=== PATIENT | female | born 1985 | race Caucasian/White ===

== ENCOUNTER 2018-01-26 20:58 | Inpatient (IN) | payer OTHER ==
[2018-01-27 04:52] LABS: Hematocrit 34.8 % (30.3-42.9); Hemoglobin 11.3 gm/dl (10.1-14.3); Mean Corpuscular HGB Conc 32 % (30-34); Mean Corpuscular Hemoglobin 28 pg (28-32); Mean Corpuscular Volume 87 fl (79-97); Platelet Count 294 K/mm3 (140-440); Red Cell Distribution Width 14.3 % (13.2-15.2)
[2018-01-27] MEDS ORDERED: LACTATED RINGERS 1,000 ML ONE (04:57)
[2018-01-27] MEDS: LACTATED RINGERS 1,000 ML IV SCH ×2 (05:09→08:19)
[2018-01-27] MEDS: PITOCin/NS 30 UNIT/500ML 30 UNITS/500 ML BAG IV SCH ×2 (08:18→09:03)
--- NOTE | 2018-01-27 10:06 | History and Physical Report ---
History of Present Illness Date of examination: 01/27/18 Date of admission: 01/26/18 20:58 Chief complaint: Presents for scheduled induction of labor for postdates and suspected small for gestational age History of present illness: Early entry to care at [facility], uncomplicated course. Past History Past Medical History: no pertinent history Past Surgical History: no surgical history Family/Genetic History: cancer (mother: gallbladder) Social history: no significant social history - Obstetrical History Expected Date of Delivery: 01/22/18 Actual Gestation: 40 Week(s) 5 Day(s) : 4 Para: 2 Hx # Term Pregnancies: 2 Spontaneous Abortions: 1 Number of Living Children: 2 #1 Infant Gender: Male year: ,[birth year] Birthweight: 2.722 kg Method of Delivery: Vaginal Gestational age at delivery: 40 Complications: none #2 Gender: Male year: ,009 Birthweight: 3.175 kg Method of Delivery: Vaginal Gestational age at delivery: 40 Complications: none Medications and Allergies Allergies Allergy/AdvReac Type Severity Reaction Status Date / Time No Known Allergies Allergy Unverified 01/26/18 22:14 Home Medications Medication Instructions Recorded Confirmed Last Taken Type No Known Home Medications [No 01/27/18 01/27/18 Unknown History Reported Home Medications] Active Meds: Active Medications Lactated Ringer's (Lactated Ringers) 1,000 mls @ 125 mls/hr IV DIRECT BRAD Last Admin: 01/27/18 08:19 Dose: 125 mls/hr Oxytocin/Sodium Chloride (Pitocin/Ns 30 Unit/500ml) 30 units in 500 mls @ 4 mls /hr IV TITR BRAD; Protocol Last Admin: 01/27/18 09:03 Dose: 8 ml/hr, 8 mls/hr Influenza Virus Vaccine Quadrival (Fluarix Quad [id number](36 Mos+) 0.5 ml IM .ONCE ONE Stop: 01/27/18 12:01 Review of Systems All systems: negative - Vital Signs Vital signs: Vital Signs Pulse Pulse Ox 76 99 01/26/18 21:56 01/26/18 21:56 Temp Pulse Resp BP Pulse Ox 97.6 F 68 14 103/57 98 01/27/18 07:31 01/27/18 08:09 01/27/18 07:31 01/27/18 07:35 01/27/18 08:09 - Physical Exam Breasts: Positive: normal Cardiovascular: Regular rate Lungs: Positive: Clear to auscultation, Normal air movement Abdomen: Positive: normal appearance, soft, normal bowel sounds Genitourinary (Female): Positive: normal external genitalia, normal perenium Uterus: Positive: enlarged Anus/Rectum: Positive: normal perianal skin - Obstetrical FHR: category 1 Uterine Contraction Monitor Mode: Internal Cervical Dilatation: 6.5 (Scant amount of clear fluid upon AROM at 0953) Cervical Effacement Percentage: 80 station: -2 Uterine Contraction Frequency (min): 2 Uterine Contraction Pattern: Regular Uterine Tone Measurement Phase: Resting Uterine Contraction Intensity: Strong/Firm Results Result Diagrams: 01/26/18 22:35 All other labs normal. Assessment and Plan A: IUP @ 40 5/7 Weeks Category I Tracing Active Labor GBS Negative P: Admit to L&D per routine orders AROM Internal x 1 Pitocin Augmentation
[2018-01-27] MEDS ORDERED: BRETHINE SUB-Q PRN (10:11)
[2018-01-27] MEDS ORDERED: ePHEDrine SULFATE IV PRN (10:11)
[2018-01-27] MEDS ORDERED: SUBLIMAZE IV PRN (10:11)
[2018-01-27] MEDS ORDERED: MINERAL OIL PO PRN (10:11)
[2018-01-27] MEDS ORDERED: XYLOCAINE 2% INFILTRATI ONE (10:11)
[2018-01-27] MEDS ORDERED: NARCAN 0.4 MG/1 ML IV PRN (10:11)
[2018-01-27] MEDS ORDERED: BRETHINE IVP PRN (10:11)
[2018-01-27] MEDS ORDERED: LACTATED RINGERS 1,000 ML IV SCH (11:00)
[2018-01-27] MEDS ORDERED: PITOCin/NS 20 UNIT/1000ML DRIP 20 UNITS/1,000 ML BAG IV SCH (11:00)
[2018-01-27] MEDS ORDERED: DULCOLAX PR PRN (11:19)
[2018-01-27] MEDS ORDERED: BENADRYL PO PRN (11:19)
[2018-01-27] MEDS ORDERED: MILK OF MAGNESIA PO PRN (11:19)
[2018-01-27] MEDS ORDERED: PHENERGAN PR PRN (11:19)
[2018-01-27] MEDS ORDERED: PERCOCET 5/325 PO PRN (11:19)
--- NOTE | 2018-01-27 11:26 | Procedure Note ---
OB Delivery Note - Delivery Date of Delivery: 01/27/18 (1104) Surgeon: JAMES BERMAN Estimated blood loss: 200cc - Vaginal Delivery presentation: vertex Delivery position: OA Intrapartum events: none Delivery induction: oxytocin Delivery augmentation: rupture of membranes, pitocin Delivery monitor: external FHT, internal uterine Route of delivery: Delivery placenta: spontaneous Delivery cord: 3 umbilical vessels Episiotomy: none Delivery laceration: none Anesthesia: none Delivery comments: of a live 6'2 female infant over a intact perineum without pain control with Apgars of 8 and 9 at 1104 on 01/27/2018. directly to maternal abd/ chest, skin to skin contact. Spontaneous delivery of placenta complete and intact with Mi side presenting at 1107. Fundus is firm and midline located 4 below the U. Lochia is scant. Delayed cord clamping and cutting; Cord cut by the father of the baby. Cord blood collected; Placenta discarded. - Infant A at 1 minute: 8 at 5 minutes: 9 Gender: Female (6'2)
[2018-01-27] MEDS ORDERED: Fluarix Quad 2017-2018(36 MOS+ IM ONE (12:00)
[2018-01-27] MEDS ORDERED: SODIUM CHLORIDE FLUSH SYRINGE 10 ML IV NR (12:00)
[2018-01-27] MEDS: MOTRIN PO SCH ×2 (18:15→23:45)
[2018-01-27 23:19] LABS: Hematocrit 32.3 % (30.3-42.9); Hemoglobin 10.7 gm/dl (10.1-14.3)
[2018-01-28] MEDS: MOTRIN PO SCH (05:57)
[2018-01-28] MEDS ORDERED: BOOSTRIX IM ONE (06:00)
--- NOTE | 2018-01-28 09:58 | Progress Note ---
Assessment and Plan A: PPD#1 s/p Stable P: Routine PP care Discharge home today Subjective - Subjective Date of service: 01/28/18 Patient reports: appetite normal, voiding normally, pain well controlled, flatus , ambulating normally : doing well, other (Breast/Bottle) Objective - Vital Signs Latest vital signs: Vital Signs Temp Pulse Resp BP BP Pulse Ox 01/28/18 08:05 98.2 F 66 20 85/46 96 01/28/18 00:00 98.2 F 68 18 92/48 01/27/18 20:05 99.4 F 89 18 86/51 01/27/18 17:45 96/48 01/27/18 16:56 98.8 F 87 18 81/37 96 01/27/18 12:39 84 105/61 01/27/18 12:23 86 108/60 01/27/18 12:08 81 96/52 01/27/18 11:54 87 103/50 01/27/18 11:38 84 109/56 01/27/18 11:26 86 110/56 Intake and Output 01/27/18 01/28/18 01/28/18 23:59 07:59 15:59 Intake Total 300 240 Output Total 400 Balance 300 -160 Intake: Oral 300 240 Output: Urine 400 Void 400 Other: Total, Intake Amount 300 240 Total, Output Amount 400 # Voids Void 3 1 - Exam Breasts: Present: normal, Cardiovascular: Present: Regular rate, Normal S1 Lungs: Present: Clear to auscultation, Normal air movement Abdomen: Present: normal appearance, soft, normal bowel sounds Vulva: both: normal Uterus: Present: firm, fundal height below umbilicus (-1) Extremities: Present: normal Deep Tendon Reflex Grade: Normal +2
--- NOTE | 2018-01-28 09:59 | Discharge Summary ---
Providers - Providers Date of Admission: 01/26/18 20:58 Date of discharge: 01/28/18 Attending physician: DAVID CONNELLY MD Primary care physician: DAVID CONNELLY MD Hospitalization Reason for admission: active labor Delivery: Procedure details: See H&P and delivery note Episiotomy: none Laceration: none Other procedures: none complications: none Discharge diagnosis: IUP at term delivered Waterproof baby: male Condition at discharge: Good Disposition: DC-01 TO HOME OR SELFCARE Plan - Provider Discharge Summary Activity: routine, no sex for 6 weeks, no heavy lifting 4 weeks, no strenuous exercise Diet: routine Instructions: routine Additional instructions: [] Smoking cessation referral if applicable(refer to patient education folder for contact #) [] Refer to [facility]'s [facility] Booklet Call your doctor immediately for: * Fever > 100.5 * Heavy vaginal bleeding ( >1 pad per hour) * Severe persistent headache * Shortness of breath * Reddened, hot, painful area to leg or breast * Drainage or odor from incision. * Keep incision clean and dry at all times and follow doctor's instructions regarding bathing/showering - Follow up plan Follow up: DAVID CONNELLY MD [Primary Care Provider] - 6 Weeks
[2018-01-29] MEDS: MOTRIN PO SCH ×3 (05:00→12:10)
[2018-01-29] MEDS ORDERED: Fluarix Quad 2017-2018(36 MOS+ IM ONE (12:00)
[2018-01-29 13:53] VITALS: BP 101/64
== END 2018-01-29 15:35 | disposition home or self-care (01) | DRG 775 ==
LOC: LD 20:58 → OB 01-27 13:11
PROVIDERS: ADMIT Obstetrics & Gynecology; ATTEND Obstetrics & Gynecology
PROC: 10E0XZZ Delivery of Products of Conception, External Approach (ICD-10-PCS; principal; 2018-01-27)
PROC: 3E033VJ Introduction of Other Hormone into Peripheral Vein, Percutaneous Approach (ICD-10-PCS; 2018-01-27)
PROC: 3E0234Z Introduction of Serum, Toxoid and Vaccine into Muscle, Percutaneous Approach (ICD-10-PCS; 2018-01-29)
DX: O48.0 Post-term pregnancy (principal); Z3A.40 40 weeks gestation of pregnancy; Z37.0 Single live birth; Z23 Encounter for immunization; Z80.0 Family history of malignant neoplasm of digestive organs
CPT/HCPCS: 36415; 85014; 85018; 85027; 86592; 86706; 86850; 86900; 86901; 90471; 90686; 99211; G0008; G0463; J2590; J7120

== ENCOUNTER 2018-11-28 10:20 | Inpatient (IN) | payer MEDICAID, OTHER ==
[2018-11-28] MEDS ORDERED: AMPICILLIN/NS 2 GM/100 ML 2 GM/100 ML BAG IV ONE (10:37)
[2018-11-28] MEDS ORDERED: XYLOCAINE 2% INFILTRATI ONE (10:37)
--- NOTE | 2018-11-28 10:55 | History and Physical Report ---
History of Present Illness Date of examination: 11/28/18 Date of admission: 11/28/18 10:22 Chief complaint: Labor History of present illness: 33 year old presents to L&D in advanced active labor. Patient states she receives care at [facility]. No records are available. LMP 03/23/2018. EDC 12/31/2018 per patient report. Patient denies any complications during this . records, labs, and GBS status are unknown. Patient reports contractions all morning. She denies vaginal bleeding or leaking of fluid. Past History Past Medical History: no pertinent history Past Surgical History: no surgical history [employer] History: denies: abnormal PAP smear, chlamydia, gonorrhea, hepatitis B, hepatitis C, herpes, HIV, syphilis, trichomonas Family/Genetic History: none Social history: , lives with family, full code. denies: smoking, alcohol abuse, prescription drug abuse, IV drug use - Obstetrical History Expected Date of Delivery: 12/31/18 Actual Gestation: 35 Week(s) 2 Day(s) : 4 Para: 2 Hx # Term Pregnancies: 2 Number of Pregnancies: 1 Spontaneous Abortions: 1 Induced : 0 Number of Living Children: 2 Medications and Allergies Allergies Allergy/AdvReac Type Severity Reaction Status Date / Time No Known Allergies Allergy Unverified 01/26/18 22:14 Home Medications Medication Instructions Recorded Confirmed Last Taken Type No Known Home Medications [No 01/27/18 01/27/18 Unknown History Reported Home Medications] Active Meds: Active Medications Ephedrine Sulfate (Ephedrine Sulfate) 10 mg IV Q2M PRN PRN Reason: Hypotension Ampicillin Sodium (Polycillin/Ns 2 Gm/100 Ml) 2 gm in 100 mls @ 100 mls/hr IV ONCE ONE; Protocol Stop: 11/28/18 11:36 Lactated Ringer's (Lactated Ringers) 1,000 mls @ 125 mls/hr IV DIRECT BRAD Oxytocin/Sodium Chloride (Pitocin/Ns 20 Unit/1000ml Drip) 20 units in 1,000 mls @ 125 mls/hr IV DIRECT BRAD Review of Systems All systems: negative (contractions) - Vital Signs Vital signs: Vital Signs Pulse BP 86 106/64 11/28/18 10:38 11/28/18 10:38 Temp Pulse Resp BP Pulse Ox 86 106/64 11/28/18 10:38 11/28/18 10:38 - Physical Exam Abdomen: Positive: normal appearance, soft. Negative: distention, tenderness, guarding, rigidity Genitourinary (Female): Positive: normal external genitalia, normal perenium. Negative: perineal/vulvar lesions (no lesions seen on careful exam with bright light upon admission) Vagina: Positive: normal moisture Uterus: Positive: enlarged (S=D), other (US obtained: EGA 33 weeks, 6 days by US measurements, fundal placenta grade 1, EFW 2449 grams.) Anus/Rectum: Positive: normal perianal skin Extremities: Positive: normal. Negative: tenderness, edema - Obstetrical FHR: category 2 Uterine Contraction Monitor Mode: External Cervical Dilatation: 9 Cervical Effacement Percentage: 100 station: -1 Uterine Contraction Pattern: Regular Uterine Contraction Intensity: Moderate Results Result Diagrams: 11/28/18 10:45 All other labs normal. Assessment and Plan A: at 35 weeks, 2 days gestation based on patient's self reported EDC (by US measurements 33 weeks, 6 days gestation). Active labor with advanced cervical dilation. No records available. GBS status unknown. P: Admit. GBS prophylaxis. Betamethasone IM. labs ordered/drawn. US to confirm EDC/gestational age. Continuous EFM. NICU to attend delivery. Consulted with Dr. Mcnally re: this patient at 35 weeks, 2 days gestation who presented in active advanced labor with no records and unknown GBS status. Informed Dr. Mcnally of interventions ordered and taken. No new orders received from Dr. Mcnally. Dr. Mcnally states she agrees with management plan.
[2018-11-28] MEDS ORDERED: CELESTONE SOLUSPAN IM ONE (10:59)
[2018-11-28] MEDS ORDERED: LACTATED RINGERS 1,000 ML IV SCH (11:00)
[2018-11-28] MEDS ORDERED: PITOCin/NS 20 UNIT/1000ML DRIP 20 UNITS/1,000 ML BAG IV SCH (11:00)
[2018-11-28 11:14] LABS: Hematocrit 34.3 % (30.3-42.9); Hemoglobin 11.4 gm/dl (10.1-14.3); Mean Corpuscular HGB Conc 33 % (30-34); Mean Corpuscular Volume 82 fl (79-97); Platelet Count 270 K/mm3 (140-440)
[2018-11-28 11:44] LABS: Hepatitis C Virus Antibody Non-Reactive (NonReactive)
--- NOTE | 2018-11-28 11:48 | Ultrasound Report ---
FINAL REPORT EXAM: US OB FOLLOW UP HISTORY: Confirm gestational age/EDC TECHNIQUE: Grayscale and color doppler ultrasound of the fetus was performed for growth. PRIORS: None. FINDINGS: A single, live intrauterine fetus is present in cephalic presentation with a heart rate of 146 beats per minute. The placenta is grade 1 and fundal in location. The amniotic fluid index is 7.5 centimete rs. Biparietal diameter: 32 weeks and 2 days. Head circumference: 33 weeks and 4 days. Abdominal circumference: 35 weeks and 4 days. Femur length: 33 weeks and 6 days. Estimated gestational age based on ultrasound criteria is 33 weeks and 6 days with an JOSE of 01/11/20 19. Estimated weight is 2449 grams. IMPRESSION: Live intrauterine fetus measuring at 33 weeks and 6 days gestational age with an JOSE of 01/10/2019.
[2018-11-28] MEDS ORDERED: TYLENOL PO PRN (12:00)
[2018-11-28] MEDS ORDERED: LANSINOH TP PRN (12:00)
[2018-11-28] MEDS ORDERED: BENADRYL PO PRN (12:00)
[2018-11-28] MEDS ORDERED: DULCOLAX PR PRN (12:00)
[2018-11-28] MEDS ORDERED: TUCKS PAD TP PRN (12:00)
[2018-11-28] MEDS ORDERED: MILK OF MAGNESIA PO PRN (12:00)
[2018-11-28] MEDS ORDERED: SODIUM CHLORIDE FLUSH SYRINGE 10 ML IV NR (12:00)
--- NOTE | 2018-11-28 12:09 | Procedure Note ---
OB Delivery Note - Delivery Date of Delivery: 11/28/18 Surgeon: SUNNY LUTZ Estimated blood loss: 200cc - Vaginal Delivery presentation: vertex Delivery position: OA Intrapartum events: labor-<37 weeks Delivery induction: none Delivery augmentation: rupture of membranes (at delivery) Delivery monitor: external FHT, external uterine Route of delivery: Delivery placenta: spontaneous Delivery cord: 3 umbilical vessels Episiotomy: none Delivery laceration: none Anesthesia: none Delivery comments: Spontaneous vaginal delivery of liveborn female infant weighing 5 lb. 3 oz. at 11:44 over intact perineum with apgars of 8/9. No anesthesia. Baby delivered gently and easily and baby was placed immediately on mother's chest after . Spontaneous cry and respirations. Baby's mouth suctioned with bulb syringe and baby was dried with warm towels and stimulated. NICU present for delivery due to late gestation. 3 vessel cord double clamped and cut after cessation of pulsation. Baby was then taken to radiant warmer for NICU to evaluate. Cord blood obtained. Spontaneous delivery of intact placenta and membranes at 11:51 by Rowe mechanism. EBL 200 cc. Pitocin to IV fluids after delivery of placenta. Fundus firm and midline. Vaginal sweep negative. No lacerations noted. Sponge count correct. Mother and baby stable in birthing room.
[2018-11-28] MEDS: IBUPROFEN PO SCH ×2 (12:49→18:09)
[2018-11-29 06:07] LABS: Hematocrit 28.2 % (30.3-42.9); Hemoglobin 9.2 gm/dl (10.1-14.3)
[2018-11-29] MEDS ORDERED: BOOSTRIX IM ONE (06:15)
--- NOTE | 2018-11-29 10:20 | Progress Note ---
Assessment and Plan - Patient Problems (1) Status post normal vaginal delivery Current Visit: Yes Status: Acute Plan to address problem: POD #1 - stable Continue routine postop orders Discharge to home 11/30/18 Follow-up at [facility] in 6 weeks for exam (2) Anemia in puerperium, baby delivered during current episode of care Current Visit: Yes Status: Acute Plan to address problem: Asymptomatic Iron therapy initiated with Ferrous sulfate 325mg PO BID Subjective - Subjective Date of service: 11/29/18 Principal diagnosis: PPD #1; s/p Interval history: See H&P and Delivery Note Patient reports: appetite normal, voiding normally, pain well controlled, ambulating normally : doing well, nursing well Objective - Vital Signs Latest vital signs: Vital Signs Temp Pulse Resp BP BP Pulse Ox 11/29/18 07:48 97.5 F L 69 98 H 83/42 11/29/18 04:00 97.9 F 72 18 108/52 11/28/18 23:15 98.2 F 64 18 92/49 11/28/18 20:50 98.3 F 70 20 102/57 11/28/18 18:24 96 11/28/18 18:09 18 11/28/18 16:29 98.9 F 75 90/47 11/28/18 16:00 98.9 F 72 16 90/47 97 11/28/18 13:35 98.2 F 71 18 102/58 100 11/28/18 13:08 70 96/55 11/28/18 11:52 86 110/64 11/28/18 11:39 113 H 117/64 11/28/18 11:21 83 107/60 11/28/18 11:06 83 111/67 11/28/18 10:51 74 113/58 11/28/18 10:45 98.6 F 18 11/28/18 10:38 86 106/64 Intake and Output 11/28/18 11/29/18 11/29/18 23:59 07:59 15:59 Intake Total 340 240 Output Total 950 800 Balance -610 -560 Intake: Oral 240 Intake, Free Water 100 240 Output: Urine 950 800 Void 950 800 Other: Total, Intake Amount 240 Total, Output Amount 500 400 - Exam Cardiovascular: Present: Regular rate Lungs: Present: Clear to auscultation, Normal air movement Abdomen: Present: normal appearance, soft Vulva: both: normal Uterus: Present: normal, firm, fundal height at umbilicus Extremities: Present: normal Comments: scant lochia - Labs Labs: Abnormal lab results 11/28/18 11/29/18 Range/Units 10:45 05:21 Hgb 9.2 L (10.1-14.3) gm/dl Hct 28.2 L D (30.3-42.9) % MCH 27 L (28-32) pg
--- NOTE | 2018-11-29 10:30 | Discharge Summary ---
Providers - Providers Date of Admission: 11/28/18 10:22 Date of discharge: 11/30/18 Attending physician: FRANSISCO RADFORD Primary care physician: FRANSISCO RADFORD Hospitalization Reason for admission: active labor, IUP - , labor Delivery: Episiotomy: none Laceration: none Other procedures: none complications: none Discharge diagnosis: delivery baby: female Hospital course: Uncomplicated Condition at discharge: Stable Disposition: [place]-01 TO HOME OR SELFCARE - Discharge Diagnoses (1) Status post normal vaginal delivery Status: Acute (2) Anemia in puerperium, baby delivered during current episode of care Status: Acute Comment: Asymptomatic Continue iron therapy Plan - Discharge Medications Prescriptions: Ferrous Sulfate [Feosol 325 MG tab] 325 mg PO BID #60 tablet - Provider Discharge Summary Activity: routine, no sex for 6 weeks, no heavy lifting 4 weeks, no strenuous exercise Diet: routine Instructions: routine Additional instructions: [] Smoking cessation referral if applicable(refer to patient education folder for contact #) [] Refer to [facility]'s [facility] Booklet Call your doctor immediately for: * Fever > 100.5 * Heavy vaginal bleeding ( >1 pad per hour) * Severe persistent headache * Shortness of breath * Reddened, hot, painful area to leg or breast * Drainage or odor from incision. * Keep incision clean and dry at all times and follow doctor's instructions regarding bathing/showering - Follow up plan Follow up: FRANSISCO RADFORD [Primary Care Provider] - 6 Weeks (Follow-up at [facility] in 6 weeks for exam)
[2018-11-29] MEDS: FEOSOL PO SCH ×2 (17:23→23:03)
[2018-11-29] MEDS: IBUPROFEN PO SCH ×2 (17:23→23:03)
[2018-11-30] MEDS: IBUPROFEN PO SCH ×2 (06:03→13:15)
[2018-11-30] MEDS: FEOSOL PO SCH (13:15)
[2018-11-30 17:19] VITALS: BP 111/70
== END 2018-11-30 20:13 | disposition home or self-care (01) | DRG 807 ==
LOC: TRG 10:20 → LD 10:22 → OB 13:21
PROVIDERS: ADMIT Obstetrics & Gynecology; ATTEND Obstetrics & Gynecology
PROC: 10E0XZZ Delivery of Products of Conception, External Approach (ICD-10-PCS; principal; 2018-11-28)
PROC: 3E0234Z Introduction of Serum, Toxoid and Vaccine into Muscle, Percutaneous Approach (ICD-10-PCS; 2018-11-29)
DX: O60.14X0 Preterm labor third trimester with preterm delivery third trimester, not applicable or unspecified (principal); D64.9 Anemia, unspecified; O90.81 Anemia of the puerperium; Z37.0 Single live birth; Z3A.35 35 weeks gestation of pregnancy; Z23 Encounter for immunization
CPT/HCPCS: 36415; 76816; 83036; 85014; 85018; 85027; 86592; 86706; 86762; 86803; 86850; 86900; 86901; 87806; 88307; 90471; 90715; G0378; J0290; J0702; J2590

== ENCOUNTER 2020-06-07 12:30 | Inpatient (IN) | payer MEDICAID, OTHER ==
[2020-06-07] MEDS ORDERED: LACTATED RINGERS 500 ML IV ONE (13:10)
[2020-06-07] MEDS ORDERED: TERBUTALINE 1 MG/1 ML INJ SUB-Q PRN (13:13)
[2020-06-07] MEDS ORDERED: MINERAL OIL 30 ML ORAL LIQD PO PRN ×2 (13:13→13:45)
[2020-06-07] MEDS ORDERED: LIDOCAINE (2%) 20 MG/1 ML VIAL 20 ML MDV INFILTRATI ONE (13:13)
[2020-06-07] MEDS ORDERED: TERBUTALINE 1 MG/1 ML INJ IVP PRN (13:13)
[2020-06-07] MEDS ORDERED: ePHEDrine SULFATE 50 MG/1 ML INJ IV PRN (13:13)
[2020-06-07] MEDS ORDERED: AMPICILLIN/NS 2 GM/100 ML 2 GM/100 ML BAG IV ONE (13:16)
[2020-06-07 13:42] LABS: Hematocrit 35.9 % (30.3-42.9); Hemoglobin 12.1 gm/dl (10.1-14.3); Mean Corpuscular HGB Conc 34 % (30-34); Mean Corpuscular Volume 87 fl (79-97); Platelet Count 237 K/mm3 (140-440); Red Blood Count 4.14 M/mm3 (3.65-5.03); Red Cell Distribution Width 19.3 % (13.2-15.2)
[2020-06-07] MEDS ORDERED: OXYTOCIN 20 UNIT/1000ML DRIP 20 UNITS/1,000 ML BAG IV SCH (14:00)
[2020-06-07] MEDS ORDERED: LACTATED RINGERS 1,000 ML IV SCH (14:00)
[2020-06-07] MEDS ORDERED: OXYTOCIN DRIP 30 UNITS/500 ML BAG IV SCH ×2 (14:00)
[2020-06-07] MEDS ORDERED: fentaNYL 100 MCG/2 ML INJ IV ONE (14:19)
--- NOTE | 2020-06-07 14:45 | History and Physical Report ---
History of Present Illness Date of examination: 06/07/20 Date of admission: 06/07/20 14:20 Chief complaint: active labor History of present illness: 35yo, @ 36.6wks, initiated care with [facility] at 19 wks gestation. Her has been complicated by close intrapartum spacing, late entry to [facility], hx of PTB and GBS positive status. [facility] stating that she was sent from office for advanced cervical dilation. She reports +FM. Denies any VB or LOF. Labs: O+, antibody negative; PAP smear negative; rubella immune; VDRL negative; HBsAg negative; HIV negative; GC/Chlamydia negative; MSAFP/Multiple marker negative; 1 hr gtt- 103; GBS positive. Past History Past Medical History: no pertinent history, other (Anemia) Past Surgical History: no surgical history Family/Genetic History: cancer (Mother-stomach cancer) Social history: , lives with family, full code. denies: smoking, alcohol abuse, prescription drug abuse, IV drug use - Obstetrical History Expected Date of Delivery: 06/29/20 Actual Gestation: 36 Week(s) 6 Day(s) : 6 Para: 4 Hx # Term Pregnancies: 3 Number of Pregnancies: 1 Spontaneous Abortions: 1 Induced : 0 Number of Living Children: 4 #1 Gender: Male year: 2,007 Birthweight: 2.722 kg Method of Delivery: Vaginal Gestational age at delivery: 40 Complications: none #2 Infant Gender: Male year: 2,009 Birthweight: 3.175 kg Method of Delivery: Vaginal Gestational age at delivery: 40 Complications: none #3 year: 2,014 Gestational age at delivery: 8 (SAB) #4 Gender: Female year: 2,018 Birthweight: 2.722 kg Method of Delivery: Vaginal Gestational age at delivery: 39 Complications: none #5 Infant Gender: Female year: 2,019 Birthweight: 2.268 kg Method of Delivery: Vaginal Gestational age at delivery: 35 (PTB) Medications and Allergies Allergies Allergy/AdvReac Type Severity Reaction Status Date / Time No Known Allergies Allergy Unverified 01/26/18 22:14 Home Medications Medication Instructions Recorded Confirmed Last Taken Type Ferrous Sulfate [Feosol 325 MG tab] 325 mg PO BID #60 tablet 11/29/18 Unknown Rx Active Meds: Active Medications Ephedrine Sulfate (Ephedrine Sulfate) 10 mg IV Q2M PRN PRN Reason: Hypotension Lactated Ringer's (Lactated Ringers) 1,000 mls @ 125 mls/hr IV DIRECT BRAD Last Admin: 06/07/20 13:33 Dose: 125 mls/hr Documented by: Oxytocin/Sodium Chloride (Pitocin/Ns 20 Unit/1000ml Drip) 20 units in 1,000 mls @ 125 mls/hr IV DIRECT BRAD Oxytocin/Sodium Chloride (Pitocin/Ns 30 Unit/500ml) 30 units in 500 mls @ 1 mls/hr IV TITR BRAD; Protocol Mineral Oil (Mineral Oil) 30 ml PO QHS PRN PRN Reason: Constipation Terbutaline Sulfate (Brethine) 0.25 mg SUB-Q ONCE PRN PRN Reason: Hyperstimulation/Hypertonicity Terbutaline Sulfate (Brethine) 0.25 mg IVP ONCE PRN PRN Reason: Hyperstimulation/Hypertonicity Review of Systems All systems: negative Genitourinary: contractions (irregular) - Vital Signs Vital signs: Vital Signs Pulse Pulse Ox 82 98 06/07/20 13:17 06/07/20 13:17 Temp Pulse Resp BP Pulse Ox 98.2 F 87 16 111/69 96 06/07/20 13:35 06/07/20 14:32 06/07/20 13:35 06/07/20 13:19 06/07/20 14:32 - Physical Exam Breasts: Positive: normal Cardiovascular: Regular rate Lungs: Positive: Normal air movement Abdomen: Positive: other (gravid) Genitourinary (Female): Positive: normal external genitalia, normal perenium Vagina: Positive: normal moisture Uterus: Positive: enlarged (S=D) Extremities: Positive: normal Deep Tendon Reflex Grade: Normal +2 - Obstetrical FHR: category 1 Uterine Contraction Monitor Mode: External Cervical Dilatation: 10 (Bulging bag) Cervical Effacement Percentage: 100 station: 0 - +1 Uterine Contraction Frequency (min): 4-5 Uterine Contraction Pattern: Regular Uterine Tone Measurement Phase: Resting Uterine Contraction Intensity: Moderate Results Result Diagrams: 06/07/20 13:00 Abnormal lab results 06/07/20 Range/Units 13:00 RDW 19.3 H (13.2-15.2) % All other labs normal. Assessment and Plan - Patient Problems (1) Active labor at term Current Visit: Yes Status: Acute Plan to address problem: Admit to L & D Pain meds as desired Anticipate (2) GBS (group B Streptococcus carrier), +RV culture, currently Current Visit: Yes Status: Acute Plan to address problem: Initiate GBS protocol
[2020-06-07] MEDS ORDERED: WITCH HAZEL/ GLYCERIN PAD TP PRN (16:20)
[2020-06-07] MEDS ORDERED: oxyCODONE /ACETAMINOPHEN 5-325MG TAB PO PRN (16:20)
[2020-06-07] MEDS ORDERED: MAGNESIUM HYDROXIDE (MOM) ORAL LIQD UDC PO PRN (16:20)
[2020-06-07] MEDS ORDERED: LANOLIN/ZINC/DIMETHICONE (LANSINOH) 7 GM TP PRN (16:20)
[2020-06-07] MEDS ORDERED: ONDANSETRON 4 MG/2 ML INJ IV PRN (16:20)
[2020-06-07] MEDS ORDERED: PROMETHAZINE 25 MG RECT SUPP PR PRN (16:20)
[2020-06-07] MEDS ORDERED: PROMETHAZINE 25 MG TAB PO PRN (16:20)
[2020-06-07] MEDS ORDERED: diphenhydrAMINE 25 MG CAP PO PRN (16:20)
--- NOTE | 2020-06-07 16:33 | Procedure Note ---
OB Delivery Note - Delivery Date of Delivery: 06/07/20 (7428) Surgeon: ANA DUKES (CNM) Estimated blood loss: 300cc - Vaginal Delivery presentation: vertex Delivery position: OA (MICHAEL) Delivery induction: none Delivery augmentation: rupture of membranes (SROM @ 1550) Delivery monitor: external uterine, internal FHT Route of delivery: Delivery placenta: spontaneous (1608, thomas) Delivery cord: other (body cord x 1, reduced at perineum) Delivery laceration: none Anesthesia: none Delivery comments: of viable, crying female infant, placed directly on maternal abdomen. Cord double clamped, cut by FOB after 3 mins. Cord blood collected, sent to lab. Placenta spontaneously delivered, thomas, sent to pathology (indication: SGA). Uterus firm @ U-3, hemostasis maintained. Perineum intact. Mother and baby safe, stable and left in care of RN. - A at 1 minute: 9 at 5 minutes: 9 Gender: Female (Weight: 2331 (5lbs 2ozs) 17.5 inches)
[2020-06-07] MEDS: IBUPROFEN 600 MG TAB PO SCH (17:19)
[2020-06-07] MEDS ORDERED: AMPICILLIN/NS 1 GM/50 ML 1 GM/50 ML BAG IV SCH (17:30)
[2020-06-08] MEDS: IBUPROFEN 600 MG TAB PO SCH ×3 (05:38→18:42)
[2020-06-08] MEDS ORDERED: DIPHtheria,PERTUSSIS(ACELL),TETANUS VACCINE/PF 0.5 ML VIAL IM ONE (06:00)
[2020-06-08 06:17] LABS: Hematocrit 27.1 % (30.3-42.9); Hemoglobin 9.1 gm/dl (10.1-14.3)
--- NOTE | 2020-06-08 08:41 | Progress Note ---
Assessment and Plan A: PPD # 1- stable P: Discharge home in am Discharge instructions given Subjective - Subjective Date of service: 06/08/20 Principal diagnosis: Patient reports: appetite normal Britton: doing well Objective - Vital Signs Latest vital signs: Vital Signs Temp Pulse Resp BP BP Pulse Ox 06/08/20 08:17 97.9 F 68 20 88/46 95 06/07/20 18:25 98.8 F 74 18 93/49 98 06/07/20 17:54 80 95/51 06/07/20 17:40 74 98/54 06/07/20 17:24 68 98/57 06/07/20 17:09 81 94/52 06/07/20 16:54 75 100/54 06/07/20 16:39 71 107/53 06/07/20 16:24 99 H 120/57 06/07/20 16:09 88 107/59 06/07/20 15:57 130 H 98 06/07/20 15:52 110 H 98 06/07/20 15:47 96 H 98 06/07/20 15:42 86 97 06/07/20 15:37 91 H 97 06/07/20 15:32 90 97 06/07/20 15:27 86 97 06/07/20 15:22 82 97 06/07/20 15:17 84 97 06/07/20 15:12 92 H 97 06/07/20 15:07 94 H 97 06/07/20 15:02 94 H 97 06/07/20 14:57 83 96 06/07/20 14:52 75 96 06/07/20 14:47 80 96 06/07/20 14:42 91 H 96 06/07/20 14:37 82 96 06/07/20 14:32 87 96 06/07/20 14:27 75 95 06/07/20 14:26 79 94 06/07/20 14:22 78 97 06/07/20 14:17 88 97 06/07/20 14:12 84 97 06/07/20 14:07 84 97 06/07/20 14:02 85 98 06/07/20 13:57 90 97 06/07/20 13:52 91 H 97 06/07/20 13:47 88 97 06/07/20 13:42 87 97 06/07/20 13:37 83 97 06/07/20 13:35 98.2 F 16 06/07/20 13:32 83 95 06/07/20 13:30 83 93 06/07/20 13:27 83 97 06/07/20 13:22 89 98 06/07/20 13:19 78 111/69 06/07/20 13:17 82 98 Intake and Output 06/07/20 06/08/20 06/08/20 22:59 06:59 14:59 Intake Total 200 850 Balance 200 850 Intake: Oral 200 850 Other: Total, Intake Amount 200 300 # Voids Void 1 1 Estimated Blood Loss 300 - Exam Breasts: Present: deferred Cardiovascular: Present: Regular rate Lungs: Present: Clear to auscultation Abdomen: Present: soft Vulva: both: normal Uterus: Present: fundal height below umbilicus Extremities: Present: normal Deep Tendon Reflex Grade: Normal +2 - Labs Labs: Abnormal lab results 06/07/20 06/08/20 Range/Units 13:00 05:33 Hgb 9.1 L D (10.1-14.3) gm/dl Hct 27.1 L D (30.3-42.9) % RDW 19.3 H (13.2-15.2) %
--- NOTE | 2020-06-08 08:43 | Discharge Summary ---
Providers - Providers Date of Admission: 06/07/20 14:20 Date of discharge: 06/09/20 Attending physician: RA SHANKAR JR, MD Primary care physician: RA SHANKAR JR, MD Hospitalization Reason for admission: active labor Delivery: Episiotomy: none Laceration: none Incision: normal Other procedures: none complications: none Discharge diagnosis: IUP at term delivered [place] baby: female Condition at discharge: Good Disposition: DC-01 TO HOME OR SELFCARE Plan - Provider Discharge Summary Activity: routine, no sex for 6 weeks, no strenuous exercise Diet: routine Instructions: routine Additional instructions: [] Smoking cessation referral if applicable(refer to patient education folder for contact #) [] Refer to [facility] Booklet Call your doctor immediately for: * Fever > 100.5 * Heavy vaginal bleeding ( >1 pad per hour) * Severe persistent headache * Shortness of breath * Reddened, hot, painful area to leg or breast * Drainage or odor from incision. * Keep incision clean and dry at all times and follow doctor's instructions regarding bathing/showering - Follow up plan Follow up: RA SHANKAR JR, MD [Primary Care Provider] - 6 Weeks
[2020-06-09] MEDS: IBUPROFEN 600 MG TAB PO SCH ×3 (00:17→12:05)
[2020-06-09 16:14] VITALS: BP 93/51
== END 2020-06-09 16:30 | disposition home or self-care (01) | DRG 807 ==
LOC: TRG 12:30 → APU 12:31 → LD 13:17 → TRG 14:18 → LD 14:20 → OB 18:25
PROVIDERS: ADMIT Obstetrics & Gynecology; ATTEND Obstetrics & Gynecology
PROC: 10E0XZZ Delivery of Products of Conception, External Approach (ICD-10-PCS; principal; 2020-06-07)
PROC: 3E0234Z Introduction of Serum, Toxoid and Vaccine into Muscle, Percutaneous Approach (ICD-10-PCS; 2020-06-08)
DX: O99.824 Streptococcus B carrier state complicating childbirth (principal); Z37.0 Single live birth; Z3A.36 36 weeks gestation of pregnancy; Z23 Encounter for immunization
CPT/HCPCS: 36415; 85014; 85018; 85027; 86592; 86850; 86900; 86901; 88307; 90715; G0378; J0290; J2590; J3010; J7120